=== PATIENT | male | born 1970 | race American Indian/Alaskan Native ===

== ENCOUNTER 2019-03-03 10:35 | Emergency (ER) | payer SELFPAY ==
[2019-03-03 14:12] VITALS: BP 119/86
[2019-03-03] MEDS ORDERED: methylPREDNISolone Sod Succinate 125 MG/2 ML INJ IV ONE (14:25)
[2019-03-03] MEDS ORDERED: ONDANSETRON 4 MG/2 ML INJ IV ONE (14:25)
[2019-03-03] MEDS ORDERED: MORPHINE 4 MG/1 ML INJ IV ONE (14:25)
--- NOTE | 2019-03-03 14:29 | Emergency Department Report ---
ED General Adult HPI - General Chief complaint: Extremity Injury, Lower Stated complaint: JOINT PAIN Time Seen by Provider: 03/03/19 14:18 Source: patient Mode of arrival: Ambulatory Limitations: No Limitations - History of Present Illness Initial comments: Patient is 49 years old male with history of hypertension on Norvasc 5 mg and recent diagnosis of gouty arthritis. Patient presented to the ER complaining of bilateral knee pain and left elbow pain. Patient stated that he has been followed by a front man and he was on prednisone but he ran out of his medication for 2 weeks now. Patient rated his pain as a 7 out of 10. He denied any recent injury, fever or chills. Patient denied any other symptoms. ED Review of Systems ROS: Stated complaint: JOINT PAIN Other details as noted in HPI Comment: All other systems reviewed and negative Constitutional: denies: chills, fever Respiratory: denies: cough, shortness of breath Cardiovascular: denies: chest pain, palpitations Gastrointestinal: denies: abdominal pain, nausea Musculoskeletal: arthralgia. denies: myalgia Neurological: denies: headache, weakness ED Physical Exam - General Limitations: No Limitations General appearance: alert, in no apparent distress - Head Head exam: Present: atraumatic, normocephalic, normal inspection - Eye Eye exam: Present: normal appearance, PERRL - ENT ENT exam: Present: normal exam, normal orophraynx, mucous membranes moist - Neck Neck exam: Present: normal inspection, full ROM. Absent: tenderness, meningismus - Respiratory Respiratory exam: Present: normal lung sounds bilaterally - Cardiovascular Cardiovascular Exam: Present: regular rate, normal rhythm, normal heart sounds - GI/Abdominal GI/Abdominal exam: Present: soft, normal bowel sounds. Absent: distended, tenderness, guarding, rebound, rigid, organomegaly, mass, bruit, pulsatile mass, hernia - Extremities Exam Extremities exam: Present: normal capillary refill. Absent: calf tenderness - Back Exam Back exam: Present: normal inspection, full ROM. Absent: tenderness, CVA tenderness (R), CVA tenderness (L), muscle spasm, paraspinal tenderness, vertebral tenderness - Neurological Exam Neurological exam: Present: alert, oriented X3, CN II-XII intact. Absent: motor sensory deficit - Skin Skin exam: Present: warm, intact, normal color ED Course Vital Signs 03/03/19 10:49 Temperature 99.1 F Pulse Rate 117 H Respiratory 18 Rate Blood Pressure 119/86 O2 Sat by Pulse 96 Oximetry Critical care attestation.: If time is entered above; I have spent that time in minutes in the direct care of this critically ill patient, excluding procedure time. ED Disposition Clinical Impression: Bilateral knee pain, Left elbow pain, Gouty arthritis Disposition: TO HOME OR SELFCARE Is pt being admited?: No Condition: Stable Instructions: Acute Gouty Arthritis (ED) Referrals: PRIMARY CARE, [Referring] - 3-5 Days
== END 2019-03-03 14:43 | disposition home or self-care (01) ==
LOC: ED 10:35
DX: M10.9 Gout, unspecified (principal); M25.561 Pain in right knee; M25.562 Pain in left knee; M25.522 Pain in left elbow
CPT/HCPCS: 96374; 96375; 99282; J2270; J2405; J2930